=== PATIENT | female | born 1970 | race Caucasian/White ===

== ENCOUNTER 2017-01-18 09:19 | Emergency (ER) | payer SELFPAY ==
[2017-01-18 09:31] VITALS: BP 143/90; PULSE 79; TEMP 97; O2SAT 98; BMI 35.5
--- NOTE | 2017-01-18 10:57 | US ---
PROCEDURE: Right lower extremity venous duplex Doppler. HISTORY: r/o dvt COMPARISON: None available. TECHNIQUE: Common femoral, superficial femoral, popliteal and posterior tibial veins were evaluated. Flow was assessed with color Doppler, compressibility, assessment of phasic flow and augmentation response. FINDINGS: COMMON FEMORAL VEIN: Unremarkable. SUPERFICIAL FEMORAL VEIN: Unremarkable. POPLITEAL VEIN: Unremarkable. POSTERIOR TIBIAL VEIN: Unremarkable. OTHER FINDINGS: None. IMPRESSION: No evidence of deep venous thrombosis in the right lower extremity.
--- NOTE | 2017-01-18 11:12 | ED PDOC ---
Lower Extremity Pain/Injury Time Seen by Provider: 01/18/17 09:49 Chief Complaint (Nursing): Lower Extremity Problem/Injury Chief Complaint (Provider): Knee pain History Per: Patient History/Exam Limitations: no limitations Onset/Duration Of Symptoms: Days (15 days) Current Symptoms Are (Timing): Still Present Additional Complaint(s): Pt. with right knee pain. Ongoing for 15 days. Denies any injury. No numbness , tingles, weakness, calf pain, chest pain, dyspnea, long distance travel, hormone tx. No pain on other leg. Past Medical History Reviewed: Nursing Documentation Vital Signs: Last Vital Signs Temp 97 F L 01/18/17 09:30 Pulse 79 01/18/17 09:30 Resp BP 143/90 01/18/17 09:30 Pulse Ox 98 01/18/17 09:30 - Medical History PMH: HTN, Migraine - Family History Family History: States: Unknown Family Hx - Social History Alcohol: None Drugs: Denies - Home Medications Home Medications: Ambulatory Orders Medication Instructions Recorded Acetaminophen/Butalbital/Caf 1 tab PO Q12 PRN 01/21/16 [Fioricet] Aspirin/Acetaminophen/Caffeine 1 tab PO Q4H PRN 01/21/16 [Excedrin Migraine Geltab] Gabapentin [Gabapentin] 100 mg PO BID 01/21/16 Ibuprofen [Motrin] 600 mg PO TID 7 Days 01/18/17 - Allergies Allergies/Adverse Reactions: Allergies Allergy/AdvReac Type Severity Reaction Status Date / Time No Known Allergies Allergy Verified 08/12/14 09:04 Review of Systems Constitutional: Negative for: Weakness Cardiovascular: Negative for: Chest Pain, Palpitations, Paroxysmal Noc. Dyspnea , Edema, Light Headedness Respiratory: Negative for: Cough, Shortness of Breath Musculoskeletal: Positive for: Leg Pain. Negative for: Neck Pain, Shoulder Pain Neurological: Negative for: Weakness Physical Exam - Reviewed Nursing Documentation Reviewed: Yes Vital Signs Reviewed: Yes - Physical Exam Appears: Positive for: Non-toxic, No Acute Distress Neck: Positive for: Normal, Painless ROM Cardiovascular/Chest: Positive for: Regular Rate, Rhythm. Negative for: Edema Back: Positive for: Normal Inspection. Negative for: L CVA Tenderness, R CVA Tenderness Extremity: Positive for: Normal ROM, Tenderness (mild R knee; no echymosis or erythema). Negative for: Pedal Edema, Calf Tenderness Neurologic/Psych: Positive for: Alert, Oriented - ECG O2 Sat by Pulse Oximetry: 98 Pulse Ox Interpretation: Normal - Radiology X-Ray: Interpreted by Me, Viewed By Me X-Ray Interpretation: No Acute Disease - Progress ED Course And Treament: 1117: Stable. AAOx3. Pain free. Ambulated with no issues. Fu with pcp. Disposition - Clinical Impression Clinical Impression: Knee pain - Patient ED Disposition Is Patient to be Admitted: No Counseled Patient/Family Regarding: Studies Performed, Diagnosis, Need For Followup, Rx Given - Disposition Referrals: [facility] [Outside] - 01/19/17 Disposition: Routine/Home Disposition Time: 11:19 Condition: STABLE Additional Instructions: Return if not better in 3 days. Prescriptions: Ibuprofen [Motrin] 600 mg PO TID 7 Days Instructions: Knee Pain (ED) Print Language: YORUBA
--- NOTE | 2017-01-18 14:52 | RAD ---
PROCEDURE: Right Knee Radiographs. HISTORY: COMPARISON: None available. FINDINGS: BONES: No acute displaced fracture. JOINTS: No dislocation. JOINT EFFUSION: No significant joint effusion. OTHER FINDINGS: None. IMPRESSION: No acute displaced fracture, dislocation, or significant joint effusion identified. If symptoms persist, or if there is continued clinical concern, x-ray follow-up in 7-10 days should be considered.
== END 2017-01-18 11:28 | disposition home or self-care (01) ==
LOC: H.ER 09:19
DX: M25.561 Pain in right knee (principal); I10 Essential (primary) hypertension; Z79.82 Long term (current) use of aspirin